=== PATIENT | female | born 1985 | race Caucasian/White ===

== ENCOUNTER 2025-04-05 15:33 | Outpatient (CLI) | payer OTHER, SELFPAY ==
--- NOTE | ~2025-04-05 | US_ITS ---
EXAMINATION: US thyroid DATE: 04/05/2025 15:58 INDICATION: Multiple thyroid nodules TECHNIQUE: Multiple ultrasound images of the thyroid were obtained. COMPARISON: None. FINDINGS: The right thyroid lobe measures 5.1 x 1.5 x 1.6 cm. The left thyroid lobe measures 5.0 x 1.8 x 1.3 c m. Heterogeneous decreased echogenicity and coarsened echotexture throughout both the left and right thyroid lobes. This results in a pseudo nodular appearance to both thyroid lobes. There is a 9 x 5 x 5 mm very hypoechoic region at the inferior right thyroid lobe which could represent more discrete t he solid nodule which is wider than tall with lobular margins and without echogenic foci (TI-RADS 5, highly suspicious , FNA if >=1.0 cm, annual followup is >0.5 cm). IMPRESSION: 1. Heterogeneous decreased echogenicity and coarsened echotexture throughout both thyroid lobes with similar nodular appearance suggestive of Jose Ramon/lymphocytic thyroiditis. 2. 9 mm TI RADS 5 nodule versus pseudo nodule at the inferior right thyroid for which annual ultrasou nd follow-up would be recommended. Reviewed, dictated and finalized at location A. IMPRESSION: 1. Heterogeneous decreased echogenicity and coarsened echotexture throughout b oth thyroid lobes with similar nodular appearance suggestive of Jose Ramon/lymph ocytic thyroiditis. 2. 9 mm TI RADS 5 nodule versus pseudo nodule at the inferior right thyroid for which annual ultrasound follow-up would be recommended.
== END 2025-04-05 15:34 | disposition home or self-care (01) ==
PROVIDERS: PCP Registered Nurse; Visit Provider Registered Nurse
DX: E04.2 Nontoxic multinodular goiter (principal)
CPT/HCPCS: 76536